=== PATIENT | female | born 1950 | race Caucasian/White ===

== ENCOUNTER → 2017-03-23 | Outpatient (CLI) | payer MEDICARE, BC ==
--- NOTE | 2017-03-26 07:28 | MM ---
Reason for exam: screening (asymptomatic). Last mammogram was performed 1 year and 3 months ago. History: Patient is postmenopausal. Physical Findings: A clinical breast exam by your physician is recommended on an annual basis and results should be correlated with mammographic findings. MG 3D Screening Mammo W/Cad Bilateral CC and MLO view(s) were taken. Prior study comparison: December 17, 2015, bilateral MG screening mammo w CAD. May 26, 2014, bilateral MG screening mammo w CAD. There are scattered fibroglandular densities. There is no discrete abnormality. No significant changes when compared with prior studies. ASSESSMENT: Negative, BI-RAD 1 RECOMMENDATION: Routine screening mammogram of both breasts in 1 year.
== END | disposition home or self-care (01) ==
LOC: RADMAMWWP 09:43
PROVIDERS: ATTEND Obstetrics & Gynecology
DX: Z12.31 Encounter for screening mammogram for malignant neoplasm of breast (principal)
CPT/HCPCS: 77063; G0202

== ENCOUNTER → 2017-04-19 | Outpatient (CLI) | payer MEDICARE, BC ==
--- NOTE | 2017-04-19 16:34 | BD ---
EXAMINATION TYPE: MG DEXA axial skeleton. DATE OF EXAM: 04/19/2017 COMPARISON: 06.10.2014 CLINICAL HISTORY: 67-year-old FEMALE: Z13.820 SCREENING FOR OSTEOPOROSIS Height: 61.5 Weight: 168 FRAX RISK QUESTIONS: Alcohol (3 or more units per day): NO, ONLY 2 DAILY Family History (Parent hip fracture): UNKNOWN Glucocorticoids (More than 3mos): NO (Ex: prednisone, prednisolone, methylprednisolone, dexamethasone, and hydrocortisone). History of Fracture in Adulthood: NO Secondary Osteoporosis: NO 1. Type 1 Diabetes: NO 2. Hyperthyroidism: NO 3. Menopause before 45: NO 4. Malnutrition: NO 5. Chronic liver disease: NO Rheumatoid Arthritis: NO Current Tobacco Use: NO RISK FACTORS HISTORY OF: Family History of Osteoporosis: UNKNOWN Active: SOMEWHAT Diet low in dairy products/other sources of calcium: NO Postmenopausal woman: AT 54 Lost more than 2 inches in height since high school: YES Hyperparathyroidism: NO Adrenal Insufficiency: NO MEDICATIONS: Additional Medications: MOBIC, NSAIDS, PRILOSEC, CALCIUM AND VIT D Additional History: ARTHRITIS EXAM MEASUREMENTS: Bone mineral densitometry was performed using the Catheter Connections System. Bone mineral density as measured about the Lumbar spine is: ----- L1-L4(G/cm2): 1.193 T Score Values are as follows: ----- L1: -0.5 ----- L2: -0.5 ----- L3: -0.4 ----- L4: 1.5 ----- L1-L4: 0.1 Bone mineral density has: Increased 3.3% since study of: 06.10.2014 Bone mineral density about the R hip (g/cm2): 0.919 Bone mineral density about the L hip (g/cm2): 0.924 T Score values are as follows: -----R Neck: -0.7 -----L Neck: -1.0 -----R Total: -0.7 -----L Total: -0.7 Bone mineral density has: Increased 1.7% since study of: 06.10.2014 FRAX%'S: THERE IS A 7.7% CHANCE FOR A MAJOR OSTEOPOROTIC FX AND A 0.6% FOR HIP FX.....PROBABILITY OF FX IN 10 YRS TIME IMPRESSION: Normal (Values between +1 and -1 indicate normal bone mass). Measurements border on osteopenia at th e left hip. Consider repeating this study in 5 years or sooner if there is some new clinical indication. NOTE: T-SCORE=SD OF THE YOUNG ADULT MEAN.
== END | disposition home or self-care (01) ==
LOC: RADBDWWP 14:51
PROVIDERS: ATTEND Obstetrics & Gynecology
DX: Z13.820 Encounter for screening for osteoporosis (principal)
CPT/HCPCS: 77080

== ENCOUNTER → 2017-05-25 | Outpatient (CLI) | payer MEDICARE, BC | END | disposition home or self-care (01) | LOC: LABPAT 13:17 | PROVIDERS: ATTEND Surgery Plastic and Reconstructive Surgery | DX: Z01.810 Encounter for preprocedural cardiovascular examination (principal) | CPT/HCPCS: 93005 ==

== ENCOUNTER 2017-05-31 12:17 | Inpatient (IN) | payer MEDICARE, BC ==
[2017-05-25 10:20] VITALS: BMI 28.3
[~2017-05-31 12:17] MED LIST: ACETAMINOPHEN IV (For NPO) 1,000 MG in EMPTY BAG 1 BAG IVPB ONE; CHLORHEXIDINE GLUCONATE 15 ML CUP MUCOUS MEM ONE; DEXAMETHASONE SOD PHOSPHATE 10 MG/ML 1 ML VIAL IV ONE; HEPARIN SODIUM,PORCINE 5,000 UNIT/ML 1 ML VIAL SQ ONE; HYDROmorphone 0.5 MG/0.5 ML SYRINGE IVP PRN; ONDANSETRON 4 MG/2 ML VIAL IVP ONE; PANTOPRAZOLE 40 MG/10 ML VIAL IV STA; SCOPOLAMINE 1.5MG/72HR PATCH TRANSDERM STA; ceFAZolin IN SWFI 2 GM/20 ML SYRINGE IVP ONE
--- NOTE | 2017-05-31 12:49 | P.GSHP ---
History of Present Illness H&P Date: 05/31/17 CHIEF COMPLAINT: Paraesophageal hiatal hernia with gastroesophageal reflux disease. HISTORY OF PRESENT ILLNESS: The patient is a 67-year-old female who presents with paraesophageal hiatal hernia. Additionally she has gastroesophageal reflux disease. She has completed an esophageal manometry including upper endoscopy workup. Now she presents for surgical intervention. PAST MEDICAL HISTORY: Please see list. PAST SURGICAL HISTORY: Please see list. MEDICATIONS: Please see list. ALLERGIES: Please see list. SOCIAL HISTORY: No illicit drug use FAMILY HISTORY: No reports of Crohn disease or ulcerative colitis. REVIEW OF ORGAN SYSTEMS: CONSTITUTIONAL: No reports of fevers or chills. GI: Denies any blood in stools or constipation. PHYSICAL EXAM: VITAL SIGNS: Stable GENERAL: Well-developed pleasant and in no acute distress. HEENT: No scleral icterus. Extraocular movements grossly intact. Moist buccal mucosa. NECK: Supple without lymphadenopathy. CHEST: Unlabored respirations. Equal bilateral excursions. CARDIOVASCULAR: Regular rate and rhythm. Distal 2+ pulses. ABDOMEN: Soft, nondistended. No peritoneal signs. MUSCULOSKELETAL: No clubbing, cyanosis, or edema. ASSESSMENT: 1. Diaphragmatic paraesophageal hiatal hernia 2. Gastroesophageal reflux disease. PLAN: 1. Recommend proceeding with a laparoscopic paraesophageal hiatal hernia with possible mesh. 2. Benefits and risks of surgical intervention was discussed including possibility of open technique. 3. Inpatient hospitalization recommended of 2 nights or less. 4. DVT prophylaxis. 5. Antibiotic prophylaxis. 6. She has also completed a very low caloric high-protein diet to address underlying hepatomegaly. 7. Robotic-assisted approach reviewed advised. Past Medical History Past Medical History: GERD/Reflux, Hearing Disorder / Deafness, Hyperlipidemia, Osteoarthritis (OA) Additional Past Medical History / Comment(s): HIATAL HERNIA. VERTIGO/RINGING IN EARS. TENDONITIS BILATERAL FEET/LEGS, WORSE ON LEFT SIDE. History of Any Multi-Drug Resistant Organisms: None Reported Past Surgical History: Cholecystectomy, Orthopedic Surgery, Tonsillectomy Additional Past Surgical History / Comment(s): PILONIDAL CYSTECTOMY. RT TRIGGER THUMB REPAIR. COLONOSCOPY/EGD Past Anesthesia/Blood Transfusion Reactions: Motion Sickness Past Psychological History: No Psychological Hx Reported Smoking Status: Former smoker Past Alcohol Use History: Occasional Additional Past Alcohol Use History / Comment(s): QUIT SMOKING 1973. Past Drug Use History: None Reported - Past Family History Father Family Medical History: Cancer Additional Family Medical History / Comment(s): SKIN Medications and Allergies Home Medications Medication Instructions Recorded Confirmed Type Meclizine [Antivert] 25 mg PO TID 03/13/17 05/25/17 History Allergies Allergy/AdvReac Type Severity Reaction Status Date / Time celecoxib [From Celebrex] Allergy See Comment Verified 05/31/17 12:35 Penicillins Allergy Unknown Verified 05/31/17 12:35 Childhood Sulfa (Sulfonamide Allergy Rash/Hives Verified 05/31/17 12:35 Antibiotics) tramadol Allergy See Comment Verified 05/31/17 12:35 nutmeg Allergy Nausea & Uncoded 05/31/17 12:35 Vomiting & Diarrhea
[2017-05-31] MEDS: LACTATED RINGERS 1,000 ML IV SCH ×2 (13:02→13:06)
[2017-05-31] MEDS ORDERED: LIDOCAINE 1% 20 ML VIAL (10MG/ML) FOR IV START INTRADERMA ONE ×2 (13:03→13:06)
[2017-05-31] MEDS: MIDAZOLAM 2 MG/2 ML VIAL IV PRN ×2 (13:26→13:30)
[2017-05-31] MEDS ORDERED: GLYCOPYRROLATE 0.2 MG/ML 2 ML VIAL ONE (13:45)
[2017-05-31] MEDS ORDERED: MIDAZOLAM 2 MG/2 ML VIAL ONE (13:45)
[2017-05-31] MEDS ORDERED: ROCURONIUM BROMIDE 10 MG/ML 10 ML VIAL IV ONE (13:45)
[2017-05-31] MEDS ORDERED: SUCCINYLCHOLINE CHLORIDE VIAL 200 MG/10 ML VIAL IV ONE (13:45)
[2017-05-31] MEDS ORDERED: HYDROmorphone (PF) 1 MG/ML ONE (13:45)
[2017-05-31] MEDS ORDERED: LIDOCAINE 1% INJ 10MG/ML (20 ML MDV) ONE (13:45)
[2017-05-31] MEDS ORDERED: fentaNYL (PF) 50 MCG/ML 2 ML AMP ONE (13:45)
[2017-05-31] MEDS ORDERED: NEOSTIGMINE 1 MG/ML 10 ML VIAL ONE (13:45)
[2017-05-31] MEDS ORDERED: PROPOFOL 10 MG/ML 20 ML VIAL IV ONE (13:45)
[2017-05-31] MEDS ORDERED: ePHEDrine SULFATE/0.9% NACL/PF 50 MG/5 ML SYRINGE IV ONE (13:45)
[2017-05-31] MEDS ORDERED: BUPIVACAINE-EPI 0.5%-1:200,000 10 ML VIAL SQ ONE (14:07)
[2017-05-31] MEDS ORDERED: LACTATED RINGERS 1,000 ML IV ONE (17:07)
[2017-05-31] MEDS ORDERED: diphenhydrAMINE 50 MG/ML 1 ML VIAL IVP PRN (17:37)
[2017-05-31] MEDS ORDERED: ONDANSETRON 4 MG/2 ML VIAL IVP PRN (17:37)
[2017-05-31] MEDS ORDERED: HYDROcodone/APAP 15 ML SOLUTION PO PRN (17:37)
[2017-05-31] MEDS ORDERED: NALOXONE 0.4 MG/ML 1 ML VIAL IV PRN (17:37)
--- NOTE | 2017-05-31 17:59 | P.OP ---
Date of Procedure: 05/31/17 Description of Procedure: DESCRIPTION OF PROCEDURE(S): SURGEON: ERIKA AYALA MD DIRECTOR ENVIRONMENTAL: 1. Jesse Blanton 2. Summer Roth PREOPERATIVE DIAGNOSES: 1. Gastroesophageal reflux disease. 2. Paraesophageal hiatal hernia, midline. 3. Hyperlipidemia. 4. Vertigo. 5. Previous history of post-op nausea or vomiting. POSTOPERATIVE DIAGNOSES: 1. Gastroesophageal reflux disease. 2. Paraesophageal hiatal hernia, midline. 3. Hyperlipidemia. 4. Vertigo. 5. Previous history of post-op nausea or vomiting. 6. Right upper quadrant omental to abdominal peritoneal adhesions from previous open cholecystectomy. OPERATION: 1. Robotic-assisted da Samantha Xi laparoscopic reduction and repair of incarcerated paraesophageal hiatal hernia, 5 x 6 cm, with Williams Biopatch A 8 x 8 cm. 2. Robotic-assisted da Samantha Xi laparoscopic Aram fundoplasty. 3. Intraoperative esophagogastroduodenoscopy ANESTHESIA: General with local anesthetic. ESTIMATED BLOOD LOSS: 5 mL SPECIMENS REMOVED: None. COMPLICATIONS: None. FINDINGS: 1. Thoracic length 21 cm. 2. Port placed 15 cm distal. 3. Incarcerated upper pole of the stomach within the mediastinum with moderate dissection performed with resection of mediastinal hernia sac. 4. 6 cm paraesophageal incarcerated diaphragmatic hiatal hernia with moderate dissection into the mediastinum. 5. Williams Biopatch A onlay mesh placed. 6. Closure of the hiatus consistent with 52-S[place] bougie. INDICATIONS: The patient is a 67-year-old female who presents with regurgitation, gastroesophageal reflux disease poorly controlled despite medications, and a symptomatic diaphragmatic hiatal hernia. Preoperative workup including upper endoscopy demonstrated a Hill grade 4 lower esophageal valve. She completed an esophageal manometry. Given the severity of her symptoms, particularly of her symptomatic diaphragmatic hiatal hernia, she had elected for surgical intervention. Benefits and risks including bleeding, infection, recurrence, dysphagia, injury to the lung, need for further surgery was described at length. Informed consent was obtained. DESCRIPTION: The patient was brought into the operating room and placed in supine position. Preoperatively she had received Lovenox subcutaneously for DVT prophylaxis. After general induction, the abdomen was prepped and draped in standard sterile fashion. The patient had previously voided prior to coming to the operating room. Ioban draping was placed along the abdomen. A timeout protocol was confirmed with the surgical team, for which the patient's name, procedure to be performed including DVT prophylaxis with bilateral SCDs, and preoperative antibiotics were also confirmed. A robotic da Samantha Xi system was prepped and primed. At 15 cm from the xiphoid to just below the umbilicus, proposed port sites were marked with indelible marker along the left axillary line, left mid-clavicular line with each ports were marked 10 cm from each other. A 5 mm 0 degrees laparoscopic trocar entry was performed along the left upper quadrant. The abdomen was insufflated to 15 mmHg pressure she tolerated well. Diagnostic laparoscopy demonstrated no injury to bowel, viscera, or mesentery. Severe adhesions of the omentum to the right upper quadrant abdominal wall was identified from previous open cholecystectomy. The liver surface was unremarkable. No injury had occurred to the small bowel or viscera. Along the hiatus, a defect was found anteriorly. Next, one 8 mm robotic port was placed along the right upper abdomen. An 8-mm port was were placed along the left lateral abdominal wall. The camera 8-mm port was maintained along the epigastrium via the hernia defect. Another 12 mm port was placed along the left upper abdominal wall after exchanging the 5 mm port. Please note that the ports were placed at least 20 cm away from the target anatomy. Care was taken to check that each robotic arm were safely away from collision with the bed or the patient. At the epigastrium, a median sized Harry liver retractor was placed under direct visualization with the [employer] placed over the right shoulder of the patient. The additional third robotic arm was placed along the left aspect of the patient. The patient was repositioned in reverse Trendelenburg position at 14-degrees after lowering the bed. The robot was docked above the left side of the patient. Using a grasper for arm 3, a grasper for arm 1, including vessel sealer for arm 2, the robotic system was docked and primed as described. Instruments were interchanged by the pier master assistant. I had sat at the console. The gastrohepatic ligament was cleaved using a vessel sealer. Next, the phrenoesophageal ligament was mobilized and the distal esophagus was mobilized circumferentially with care of to the bilateral vagi nerves. The left and right crura was identified. A moderate sized midline large hiatal hernia and sac was found incarcerated into the mediastinum. Significant mobilization of the distal to mid esophagus into the mediastinum was performed. Circumferentially, the hernia sac was excised and brought into the peritoneal cavity. Care was taken to avoid any gastrotomy to the incarcerated upper pole of the stomach. Extended dissection occurred for at least another 1 hour as the superior iposterior axis of the stomach was densely adherent and causing moderate rotation of the stomach. The measured defect was consistent with 6 cm axial length and 5 cm in width. After extensive dissection, the distal esophagus at least 2 cm was brought into the abdominal cavity. Once the hiatus and crura was dissected, 2-0 VLOC suture was placed initially with a [id number] suture to reapproximate the diaphragmatic hiatus posteriorly. To buttress the repair, a Williams Biopatch A was prepared along the back table and cut in a tomlin-hole fashion as to reinforce the repair as an underlay. The mesh was placed along the crural repair and tagged using horizontal mattress sutures using 2-0 VLOC. Next a Aram fundoplasty was performed such that the greater curvature of stomach was swung along the retrogastric space. A shoeshine technique demonstrated no tension or torsion along the proposed Aram fundoplasty. Sutures of 2-0 Ethibond were used to place each stitch. Next, the first stitch from a left gastric to esophageal to right gastric bites was tied. Two additional sutures approximately a centimeter inferiorly were placed with gastric to gastric bites. The final fundoplasty was found to lay at the 11 o'clock position without any gastrotomy. I went to the head of the bed to perform intraoperative esophagogastroduodenoscopy. A 52-S[place] Arabian bougie was carefully placed along the posterior oropharynx through the hiatus as a visual aid for hiatus closure and then removed. I went to the head of the bed to perform intraoperative esophagogastroduodenoscopy. An Olympus gastroscope was passed through posterior oropharynx, where the GE junction was found distal to the diaphragmatic hiatus. The intra-abdominal esophageal length obtained during the case was over 2 cm. The stomach was entered. Retroflexion of the scope confirmed a Hill grade 1 lower esophageal valve. The stomach had been desufflated. No evidence of leaks were found either of the mucosal defects of the esophagus or stomach. The hiatal closure was consistent with a 52 [place] bougie as a bougie was passed. This concluded the endoscopic portion of the case. The robot was undocked from the patient. I re-scrubbed into the case. All instruments and pneumoperitoneum were evacuated from the abdominal cavity. Incisions were reapproximated using 4-0 Monocryl in an interrupted subcuticular fashion. The 12-mm port site was oversewn using 0 Vicryl in a Terrance Lange. Dermabond was applied to the skin. Local anesthetic was infiltrated in all wounds for postop analgesia. Multiple intra-abdominal films were obtained. At the end of the procedure, needle, sponge, and instrument count was verified correct by the sleep technician. The patient had tolerated the procedure well and was taken to the postanesthesia unit in stable condition. Intraoperative films were reviewed with the patient's family who was pleased with the level of care.
[2017-05-31] MEDS ORDERED: ACETAMINOPHEN IV (For NPO) 1,000 MG in EMPTY BAG 1 BAG IVPB ONE (19:00)
[2017-05-31] MEDS: 0.9% NACL WITH KCL 20 MEQ/L 1,000 ML IV SCH (19:56)
[2017-05-31] MEDS: SIMETHICONE 40 MG/0.6 ML DROPS 2,000 MG/30 ML BOTTLE PO SCH (19:56)
[2017-05-31] MEDS: HYOSCYAMINE ORAL DROPS 1.875 MG/15 ML BOTTLE PO SCH (19:56)
[2017-05-31] MEDS: MECLIZINE 25 MG TAB PO SCH (22:21)
[2017-05-31] MEDS: HYDROmorphone 0.5 MG/0.5 ML SYRINGE IVP PRN (22:25)
[2017-06-01] MEDS: SIMETHICONE 40 MG/0.6 ML DROPS 2,000 MG/30 ML BOTTLE PO SCH ×4 (00:38→18:45)
[2017-06-01] MEDS: HYOSCYAMINE ORAL DROPS 1.875 MG/15 ML BOTTLE PO SCH ×4 (00:39→18:44)
[2017-06-01] MEDS: HYDROmorphone 0.5 MG/0.5 ML SYRINGE IVP PRN ×6 (02:28→23:56)
[2017-06-01] MEDS: 0.9% NACL WITH KCL 20 MEQ/L 1,000 ML IV SCH ×2 (02:32→13:11)
[2017-06-01] MEDS ORDERED: ceFAZolin IN SWFI 2 GM/20 ML SYRINGE IVP STA (06:09)
[2017-06-01 06:32] LABS: Basophils % (A) 0 %; CH 30.4; CHCM 32.2; Eosinophils % (A) 0 %; HCT 35.5 % (34.0-46.0); HDW 2.33; HGB 11.4 gm/dL (11.4-16.0); Luc # (Auto) 0.14; Luc % (Auto) 1; Lymphocytes # (A) 1.5 k/uL (1.0-4.8); Lymphocytes % (A) 16 %; MCH 30.4 pg (25.0-35.0); MCV 94.8 fL (80.0-100.0); Mean Platelet Volume 7.2; Monocytes # (A) 0.6 k/uL (0-1.0); Monocytes % (A) 6 %; Neutrophils # (A) 7.2 k/uL (1.3-7.7); Neutrophils % (A) 76 %; RBC 3.75 m/uL (3.80-5.40); RDW 12.2 % (11.5-15.5); WBC 9.5 k/uL (3.8-10.6); WBC (Perox) 9.08
[2017-06-01 07:08] LABS: Anion Gap 7 mmol/L; Blood Urea Nitrogen 10 mg/dL (7-17); Calcium 9.2 mg/dL (8.4-10.2); Carbon Dioxide 23 mmol/L (22-30); Chloride 108 mmol/L (98-107); Magnesium 1.9 mg/dL (1.6-2.3); Non-African American GFR(MDRD) >60 (>60 ml/min/1.73 sqM); Phosphorous 3.9 mg/dL (2.5-4.5); Potassium 5.2 mmol/L (3.5-5.1); Sodium 138 mmol/L (137-145)
--- NOTE | 2017-06-01 07:42 | P.PN ---
Progress Note - Text Progress Note Date: 06/01/17 Patient seen and evaluated. No nausea. Patient can be discharged home following esophagram tomorrow.
[2017-06-01] MEDS ORDERED: 0.9% NACL WITH KCL 20 MEQ/L 1,000 ML IV SCH (08:00)
[2017-06-01] MEDS: PANTOPRAZOLE 40 MG/10 ML VIAL IV SCH (08:35)
[2017-06-01] MEDS: ENOXAPARIN 40 MG/0.4 ML SYRINGE SQ SCH (08:44)
[2017-06-01] MEDS: MECLIZINE 25 MG TAB PO SCH ×3 (10:00→21:40)
--- NOTE | 2017-06-01 11:35 | FL ---
EXAMINATION TYPE: FL UGI DATE OF EXAM: 06/01/2017 COMPARISON: NONE HISTORY: Status post Aram fundoplication TECHNIQUE: A single contrast UGI study is performed. 1.49 seconds of fluoroscopy time was utilized w ith 18 images saved in 2 ounces of EZ Paque contrast. FINDINGS: After administration of approximately 1 ounce of contrast there is only minimal contrast expelled thr ough the gastroesophageal junction into the proximal stomach. Severe obstruction wasn't appreciated w ith lack of propulsion through the gastroesophageal junction of the remaining contrast. Air-fluid lev el is noted within the mildly dilated distal esophagus to the level of the mid thoracic esophagus. De spite 10 minute delay with the patient in the upright gravity dependent position and reimaging no add itional contrast was seen extending through the gastroesophageal junction. Retained contrast is again noted to the level of the midthoracic esophagus. The patient was then given 1 ounce of water to stim ulate antegrade flow with slight success. Minimal amount of contrast was again seen extending through the gastroesophageal junction with persistent retained moderate amount of contrast. The patient was sent to her room with aspiration precautions. Aspiration precautions were also discussed with the pat ient. IMPRESSION: Severe obstruction at the gastroesophageal junction despite 10 minute delayed images afte r the patient was placed in an upright gravity dependent position. Only minimal contrast extends thro ugh the gastroesophageal junction and there is mild distal esophageal dilatation with air-fluid level and residual contrast to the level of the mid thoracic esophagus. A Oliver message has been communicated to Dee Dee Bartlett MD via the [facility] sult system on 06/01/2017 11:33 AM, Message ID [id number].
--- NOTE | 2017-06-01 12:27 | P.PN ---
<AzarDianaGaby M - Last Filed: 06/01/17 12:12> Subjective Progress Note Date: 06/01/17 67-year-old female seen and examined at bedside. Patient currently is sitting up in a chair. Patient reports having no difficulty swallowing oral secretions. Patient reports on a scale 1-10 rating pain at a 3 discomfort left lower quadrant. Ice packs to surgical site Surgical incision sites dry no redness abdomen not distended slight surgical tenderness noted. Did note the post op upper GI shows severe obstruction at the gastroesophageal junction mild distal esophageal dilatation with air-fluid level no air leak. Postop on May 31 Robotic-assisted da Samantha Xi laparoscopic reduction and repair of incarcerated paraesophageal hiatal hernia, 5 x 6 cm, with Butler Biopatch A 8 x 8 cm. . Robotic-assisted da Samantha Xi laparoscopic Aram fundoplasty. . Intraoperative esophagogastroduodenoscopy Objective - Vital Signs Vital signs: Vital Signs Temp 97.8 F 06/01/17 11:00 Pulse 58 L 06/01/17 11:00 Resp 20 06/01/17 11:00 BP 113/67 06/01/17 11:00 Pulse Ox 97 06/01/17 11:00 Intake & Output 05/31/17 06/01/17 06/01/17 18:59 06:59 18:59 Intake Total 2100 360 710 Output Total 155 100 675 Balance 1945 260 35 Weight 72.575 kg Intake: IV 2100 Intake, IV Titration 450 Amount 0.9% NaCl with KCl 20 Meq 300 /l 1,000 ml @ 100 mls/hr IV .Q10H GISELLE Rx#: [id number] 0.9% NaCl with KCl 20 Meq 150 /l 1,000 ml @ 150 mls/hr IV .Q6H40M GISELLE Rx#: [id number] Oral 360 260 Output: Urine 150 100 675 Estimated Blood Loss 5 - Constitutional Constitutional Comment(s): Physical exam Pleasant 67-year-old female sitting upright in a chair appears in no acute distress denies any nausea vomiting. States no difficulty in swallowing oral secretions Lungs adequate air movement bilaterally on room air Heart S1-S2 audible regular Abdomen soft surgical sites dry no redness not distended bowel tones present surgical tenderness appropriate reports having discomfort left lower quadrant urinating no difficulty no stool Extremities no edema noted - Labs CBC & Chem 7: 06/01/17 06:21 11/17/17 06:21 Labs: Abnormal Lab Results - Last 24 Hours (Table) 06/01/17 06/01/17 Range/Units 06:21 06:21 RBC 3.75 L (3.80-5.40) m/uL Potassium 5.2 H (3.5-5.1) mmol/L Chloride 108 H (98-107) mmol/L Assessment and Plan Plan: Impression History of esophageal reflux disease Periesophageal hiatal hernia midline Hyperlipidemia Robotic-assisted da Samantha Xi laparoscopic reduction and repair of incarcerated paraesophageal hiatal hernia, 5 x 6 cm, with Butler Biopatch A 8 x 8 cm. . Robotic-assisted da Samantha Xi laparoscopic Aram fundoplasty. . Intraoperative esophagogastroduodenoscopy Postop upper GI shows severe obstruction at the gastroesophageal junction Mild hyperkalemia Plan We'll give a 2 L fluid bolus rehydrated then fluid to run at 100 and hour Have patient sit upright Continue postop surgical care Aspiration precautions Pain control Further recommendations pending The above impression and plan of care have been discussed and directed by signing physician. Gaby Askew nurse practitioner acting as scribe for signing physician. <Dee Dee Bartlett - Last Filed: 06/01/17 20:14> Objective - Vital Signs Vital signs: Vital Signs Temp 97.4 F L 06/01/17 16:03 Pulse 60 06/01/17 16:03 Resp 16 06/01/17 16:03 BP 110/70 06/01/17 16:03 Pulse Ox 98 06/01/17 16:03 Intake & Output 06/01/17 06/01/17 06/02/17 06:59 18:59 06:59 Intake Total 360 890 30 Output Total 100 1075 Balance 260 -185 30 Weight 72.575 kg Intake: Intake, IV Titration 450 Amount 0.9% NaCl with KCl 20 Meq 300 /l 1,000 ml @ 100 mls/hr IV .Q10H GISELLE Rx#: [id number] 0.9% NaCl with KCl 20 Meq 150 /l 1,000 ml @ 150 mls/hr IV .Q6H40M GISELLE Rx#: [id number] Oral 360 440 30 Output: Urine 100 1075 - Labs CBC & Chem 7: 06/01/17 06:21 06/01/17 06:21 Labs: Abnormal Lab Results - Last 24 Hours (Table) 06/01/17 06/01/17 Range/Units 06:21 06:21 RBC 3.75 L (3.80-5.40) m/uL Potassium 5.2 H (3.5-5.1) mmol/L Chloride 108 H (98-107) mmol/L
[2017-06-01] MEDS ORDERED: ACETAMINOPHEN IV (For NPO) 1,000 MG in EMPTY BAG 1 BAG IVPB ONE (12:30)
[2017-06-01] MEDS: SODIUM CHLORIDE 0.9% 1,000 ML IV SCH ×4 (13:22→21:22)
[2017-06-01] MEDS ORDERED: DEXAMETHASONE SOD PHOSPHATE 10 MG/ML 1 ML VIAL IV STA (20:24)
[2017-06-01] MEDS: ACETAMINOPHEN IV (For NPO) 1,000 MG in EMPTY BAG 1 BAG IVPB PRN (23:30)
[2017-06-02] MEDS: SIMETHICONE 40 MG/0.6 ML DROPS 2,000 MG/30 ML BOTTLE PO SCH ×3 (01:34→12:51)
[2017-06-02] MEDS: HYOSCYAMINE ORAL DROPS 1.875 MG/15 ML BOTTLE PO SCH ×3 (01:35→12:48)
[2017-06-02] MEDS: DEXAMETHASONE SOD PHOSPHATE 10 MG/ML 1 ML VIAL IV SCH ×2 (02:41→10:30)
[2017-06-02] MEDS: HYDROmorphone 0.5 MG/0.5 ML SYRINGE IVP PRN ×2 (02:41→05:30)
[2017-06-02] MEDS: ACETAMINOPHEN IV (For NPO) 1,000 MG in EMPTY BAG 1 BAG IVPB PRN (05:51)
--- NOTE | 2017-06-02 07:33 | XR ---
EXAMINATION TYPE: XR chest 1V DATE OF EXAM: 06/02/2017 HISTORY: dyspnea. REFERENCE: NONE. FINDINGS: Heart is mildly enlarged. The lungs are clear. Pleural spaces are clear. There is subcutane ous emphysema overlying the supraclavicular areas bilaterally. There is also subcutaneous emphysema a long the left lateral chest wall. There is a 20% by volume, left apical pneumothorax. There is atelec tatic change at the left lung base. There is a small left effusion. IMPRESSION: 1. 20% LEFT APICAL PNEUMOTHORAX. 2. SUBCUTANEOUS EMPHYSEMA. 3. LEFT BASILAR ATELECTASIS. 4. CARDIOMEGALY.
[2017-06-02 07:46] LABS: Anion Gap 10 mmol/L; Blood Urea Nitrogen 7 mg/dL (7-17); Calcium 9.2 mg/dL (8.4-10.2); Carbon Dioxide 20 mmol/L (22-30); Chloride 105 mmol/L (98-107); Glucose 99 mg/dL (74-99); Non-African American GFR(MDRD) >60 (>60 ml/min/1.73 sqM); Potassium 4.7 mmol/L (3.5-5.1); Sodium 135 mmol/L (137-145)
[2017-06-02 08:33] VITALS: PULSE 56; TEMP 97.1
[2017-06-02] MEDS ORDERED: ceFAZolin IN SWFI 2 GM/20 ML SYRINGE IVP STA (08:52)
[2017-06-02 08:54] VITALS: RESP 16
[2017-06-02] MEDS: ENOXAPARIN 40 MG/0.4 ML SYRINGE SQ SCH (09:43)
[2017-06-02] MEDS: MECLIZINE 25 MG TAB PO SCH (09:43)
[2017-06-02] MEDS: PANTOPRAZOLE 40 MG/10 ML VIAL IV SCH (09:43)
[2017-06-02 10:08] VITALS: BP 115/73
--- NOTE | 2017-06-02 12:24 | P.PN ---
Subjective Progress Note Date: 06/02/17 Principal diagnosis: Hiatal hernia with esophageal reflux disease The patient is a 67-year-old female who is status post robotic-assisted laparoscopic hiatal hernia repair with mesh placement. Postprocedure she was doing fair however she had an esophagram which demonstrated high-grade esophageal obstruction. After conservative measures including using Decadron, clinically she was able to tolerate liquids. Her nausea had completely resolved. A repeat chest x-ray was obtained that confirmed clearance of her barium swallow. She denies any dyspnea on exertion. She denied any chest pain. She is using her incentive spirometer and obtaining expected valleys over 1500 mL. Objective - Vital Signs Vital signs: Vital Signs Temp 97.1 F L 06/02/17 08:29 Pulse 56 L 06/02/17 10:07 Resp 16 06/02/17 10:07 BP 115/73 06/02/17 10:07 Pulse Ox 98 06/02/17 10:07 Intake & Output 06/01/17 06/02/17 06/02/17 18:59 06:59 18:59 Intake Total 890 790 30 Output Total 1075 2250 1500 Balance -185 -1460 -1470 Weight 72.575 kg Intake: IV 660 Sodium Chloride 0.9% 1, 660 000 ml @ 100 mls/hr IV . Q10H GISELLE Rx#:[id number] Intake, IV Titration 450 100 Amount 0.9% NaCl with KCl 20 Meq 300 /l 1,000 ml @ 100 mls/hr IV .Q10H GISELLE Rx#: [id number] 0.9% NaCl with KCl 20 Meq 150 /l 1,000 ml @ 150 mls/hr IV .Q6H40M GISELLE Rx#: [id number] ACETAMINOPHEN IV (For NPO 100 ) 1,000 mg In Empty Bag 1 bag @ 400 mls/hr IVPB Q6HR PRN Rx#:[id number] Oral 440 30 30 Output: Urine 1075 2250 1500 - Exam GENERAL: Well developed and in no acute distress. Pleasant. HEENT: No sclera icterus. Extraocular movements grossly intact. Moist buccal mucosa. Head is atraumatic, normocephalic. Hears conversational speech. No nasal drainage. NECK: Supple without lymphadenopathy. No JV distention. CHEST: Non-labored respirations and equal bilateral excursions. CARDIOVASCULAR: Regular rate and rhythm. Palpable 2+ radial pulses. ABDOMEN: Soft. Nondistended. Laparoscopic sites clean dry and intact. Improved expected discomfort along the left upper quadrant incision as a full muscular closure. MUSCULOSKELETAL: No clubbing, cyanosis or edema. NEUROLOGIC: No focal or lateralizing signs. PSYCH: Appropriate affect. Alert and oriented to person, place and time. SKIN: Good skin turgor. Well perfused. - Labs CBC & Chem 7: 06/01/17 06:21 06/02/17 06:29 Labs: Abnormal Lab Results - Last 24 Hours (Table) 06/02/17 Range/Units 06:29 Sodium 135 L (137-145) mmol/L Carbon Dioxide 20 L (22-30) mmol/L - Imaging and Cardiology Chest x-ray: image reviewed (X-ray reviewed by me. ) Assessment and Plan (1) Paraesophageal hernia with obstruction but no gangrene Current Visit: Yes Status: Acute Code(s): K44.0 - DIAPHRAGMATIC HERNIA WITH OBSTRUCTION, WITHOUT GANGRENE SNOMED Code(s): 98804138 (2) Regurgitation Current Visit: Yes Status: Acute Code(s): R11.10 - VOMITING, UNSPECIFIED SNOMED Code(s): 74989885 (3) Dysphagia Current Visit: Yes Status: Acute Code(s): R13.10 - DYSPHAGIA, UNSPECIFIED SNOMED Code(s): 24086984 (4) Nausea Current Visit: Yes Status: Acute Code(s): R11.0 - NAUSEA SNOMED Code(s): 656972730 Plan: 1. Clinically, she is tolerating her Aram diet. Post Aram instructions were described in detail. 2. Continue with incentive spirometer for home. This is to prevent atelectasis. 3. Follow-up in the office in 3 days. 4. Results of her chest x-ray was reviewed. I have recommended continue incentive spirometer at home as patient at the time of evaluation is asymptomatic. 5. Discharge home.
--- NOTE | 2017-06-02 12:27 | P.DS ---
Providers Date of admission: 05/31/17 12:17 Expected date of discharge: 06/02/17 Attending physician: Dee Dee Bartlett Primary care physician: Narciso Jones - Discharge Diagnosis(es) (1) Paraesophageal hernia with obstruction but no gangrene Current Visit: Yes Status: Acute (2) Regurgitation Current Visit: Yes Status: Acute (3) Dysphagia Current Visit: Yes Status: Acute (4) Nausea Current Visit: Yes Status: Acute Hospital Course: The patient is a 67-year-old female who had a symptomatic large paraesophageal hiatal hernia with incarceration. She had robotic-assisted approach. Post procedure, she had developed edema along her surgery. As this is an expected doing and inherent responded to the procedure, she did develop mild dysphagia which had immediately resolved after giving her Decadron to decrease edema from her surgery. Prior to discharge, she felt better. She is tolerating liquids. She denied any dyspnea, shortness of breath, chest pain, and was ambulating without dyspnea on exertion. Pertinent Studies: Esophagram Chest x-ray Procedures: POSTOPERATIVE DIAGNOSES: 1. Gastroesophageal reflux disease. 2. Paraesophageal hiatal hernia, midline. 3. Hyperlipidemia. 4. Vertigo. 5. Previous history of post-op nausea or vomiting. 6. Right upper quadrant omental to abdominal peritoneal adhesions from previous open cholecystectomy. OPERATION: 1. Robotic-assisted da Samantha Xi laparoscopic reduction and repair of incarcerated paraesophageal hiatal hernia, 5 x 6 cm, with [place] Biopatch A 8 x 8 cm. 2. Robotic-assisted da Samantha Xi laparoscopic Aram fundoplasty. 3. Intraoperative esophagogastroduodenoscopy ANESTHESIA: General with local anesthetic. ESTIMATED BLOOD LOSS: 5 mL SPECIMENS REMOVED: None. COMPLICATIONS: None. FINDINGS: 1. Thoracic length 21 cm. 2. Port placed 15 cm distal. 3. Incarcerated upper pole of the stomach within the mediastinum with moderate dissection performed with resection of mediastinal hernia sac. 4. 6 cm paraesophageal incarcerated diaphragmatic hiatal hernia with moderate dissection into the mediastinum. 5. [place] Biopatch A onlay mesh placed. 6. Closure of the hiatus consistent with 52-Urdu bougie. Patient Condition at Discharge: Stable Plan - Discharge Summary Discharge Rx Participant: Yes New Discharge Prescriptions: New Acetaminophen 40 mg/1.25 ml [Tylenol 40 mg/1.25 ml Oral Syringe] 500 mg PO Q6HR PRN #480 oral.syrg PRN Reason: Pain Ondansetron Odt [Zofran ODT] 4 mg PO Q8HR PRN #8 tab PRN Reason: Nausea Hyoscyamine Oral Drops [Levsin Drops] 0.125 mg PO Q6HR ml Simethicone 40 mg/0.6 ml Drops [Mylicon Drops] 40 mg PO Q6HR ml Continue Meclizine [Antivert] 25 mg PO TID Discharge Medication List Meclizine [Antivert] 25 mg PO TID 03/13/17 [History] Acetaminophen 40 mg/1.25 ml [Tylenol 40 mg/1.25 ml Oral Syringe] 500 mg PO Q6HR PRN #480 oral.syrg 06/01/17 [Rx] Hyoscyamine Oral Drops [Levsin Drops] 0.125 mg PO Q6HR ml 06/01/17 [Rx] Ondansetron Odt [Zofran ODT] 4 mg PO Q8HR PRN #8 tab 06/01/17 [Rx] Simethicone 40 mg/0.6 ml Drops [Mylicon Drops] 40 mg PO Q6HR ml 06/01/17 [Rx] Follow up Appointment(s)/Referral(s): Dee Dee Bartlett MD [STAFF PHYSICIAN] - 06/05/17 4:30 pm (You have an appointment with Dr Bartlett on Monday, June 05, 2017 at 4:30 pm) Patient Instructions/Handouts: Adult Laparoscopic Aram Fundoplication (DC) Activity/Diet/Wound Care/Special Instructions: No lifting over 4 pounds in 4 weeks. Full liquid diet until seen in the office. No solid foods. Avoid straws. Avoid carbonated beverages. May shower. No baths soaks. Discharge Disposition: HOME SELF-CARE
== END 2017-06-02 12:45 | disposition home or self-care (01) | DRG 328 ==
LOC: 2ORWHC 12:17 → 6PED 17:32
PROVIDERS: ADMIT Surgery Plastic and Reconstructive Surgery; ATTEND Surgery Plastic and Reconstructive Surgery
PROC: 0DJ08ZZ Inspection of Upper Intestinal Tract, Via Natural or Artificial Opening Endoscopic (ICD-10-PCS; principal; 2017-05-31 13:30)
PROC: 0DNU0ZZ Release Omentum, Open Approach (ICD-10-PCS; principal; 2017-05-31 13:30)
PROC: 0BUT0JZ Supplement Diaphragm with Synthetic Substitute, Open Approach (ICD-10-PCS; principal; 2017-05-31 13:30)
PROC: 0DV40ZZ Restriction of Esophagogastric Junction, Open Approach (ICD-10-PCS; principal; 2017-05-31 13:30)
PROC: 8E0W0CZ Robotic Assisted Procedure of Trunk Region, Open Approach (ICD-10-PCS; principal; 2017-05-31 13:30)
DX: K44.0 Diaphragmatic hernia with obstruction, without gangrene (principal); E87.5 Hyperkalemia; E78.5 Hyperlipidemia, unspecified; H91.90 Unspecified hearing loss, unspecified ear; K21.9 Gastro-esophageal reflux disease without esophagitis; K22.2 Esophageal obstruction; K66.0 Peritoneal adhesions (postprocedural) (postinfection); Z87.891 Personal history of nicotine dependence; Z79.899 Other long term (current) drug therapy; R42 Dizziness and giddiness; Z88.2 Allergy status to sulfonamides; Z88.0 Allergy status to penicillin; Z88.6 Allergy status to analgesic agent; Z91.018 Allergy to other foods
CPT/HCPCS: 71010; 74240; 80048; 80051; 82310; 82565; 83735; 84100; 84520; 85025

== ENCOUNTER → 2018-03-26 | Outpatient (CLI) | payer MEDICARE, BC ==
--- NOTE | 2018-03-27 12:02 | MM ---
Reason for exam: screening (asymptomatic). Last mammogram was performed 1 year ago. History: Patient is postmenopausal. Physical Findings: A clinical breast exam by your physician is recommended on an annual basis and results should be correlated with mammographic findings. MG 3D Screening Mammo W/Cad Bilateral CC and MLO view(s) were taken. Prior study comparison: March 23, 2017, bilateral MG 3d screening mammo w/cad. December 17, 2015, bilateral MG screening mammo w CAD. There are scattered fibroglandular densities. There is no discrete abnormality. No significant changes when compared with prior studies. ASSESSMENT: Negative, BI-RAD 1 RECOMMENDATION: Routine screening mammogram of both breasts in 1 year.
== END | disposition home or self-care (01) ==
LOC: RADMAMWWP 10:46
PROVIDERS: ATTEND Obstetrics & Gynecology
DX: Z12.31 Encounter for screening mammogram for malignant neoplasm of breast (principal)
CPT/HCPCS: 77063; 77067

== ENCOUNTER → 2019-03-31 | Outpatient (CLI) | payer MEDICARE, BC ==
--- NOTE | 2019-04-02 09:02 | MM ---
Reason for exam: screening (asymptomatic). Last mammogram was performed 1 year ago. History: Patient is postmenopausal. Physical Findings: A clinical breast exam by your physician is recommended on an annual basis and results should be correlated with mammographic findings. MG 3D Screening Mammo W/Cad Bilateral CC and MLO view(s) were taken. Prior study comparison: March 26, 2018, bilateral MG 3d screening mammo w/cad. March 23, 2017, bilateral MG 3d screening mammo w/cad. There are scattered fibroglandular densities. No significant changes when compared with prior studies. ASSESSMENT: Negative, BI-RAD 1 RECOMMENDATION: Routine screening mammogram of both breasts in 1 year.
== END | disposition home or self-care (01) ==
LOC: RADMAMWWP 11:15
PROVIDERS: ATTEND Obstetrics & Gynecology
DX: Z12.31 Encounter for screening mammogram for malignant neoplasm of breast (principal)
CPT/HCPCS: 77063; 77067

== ENCOUNTER 2020-03-10 06:59 | Day surgery (SDC) | payer MEDICARE, BC ==
[2020-03-05 11:13] VITALS: BMI 27.3
[~2020-03-10 06:59] MED LIST changes: -ACETAMINOPHEN IV (For NPO) 1,000 MG in EMPTY BAG 1 BAG IVPB ONE; -CHLORHEXIDINE GLUCONATE 15 ML CUP MUCOUS MEM ONE; -DEXAMETHASONE SOD PHOSPHATE 10 MG/ML 1 ML VIAL IV ONE; -HEPARIN SODIUM,PORCINE 5,000 UNIT/ML 1 ML VIAL SQ ONE; -HYDROmorphone 0.5 MG/0.5 ML SYRINGE IVP PRN; +LACTATED RINGERS 1,000 ML IV SCH; +LIDOCAINE 1% (10MG/ML) FOR IV START INTRADERMA PRN; -ONDANSETRON 4 MG/2 ML VIAL IVP ONE; -PANTOPRAZOLE 40 MG/10 ML VIAL IV STA; -SCOPOLAMINE 1.5MG/72HR PATCH TRANSDERM STA; -ceFAZolin IN SWFI 2 GM/20 ML SYRINGE IVP ONE
[2020-03-10 07:27] VITALS: TEMP 97.7
--- NOTE | 2020-03-10 07:40 | P.GSHP ---
History of Present Illness H&P Date: 03/10/20 CHIEF COMPLAINT: Colon screen HISTORY OF PRESENT ILLNESS: The patient is a 70-year-old female who presents for colon screen. Lower endoscopy was offered for further evaluation and management. PAST MEDICAL HISTORY: Please see list. PAST SURGICAL HISTORY: Please see list. MEDICATIONS: Please see list. ALLERGIES: Please see list. SOCIAL HISTORY: No illicit drug use FAMILY HISTORY: No reports of Crohn disease or ulcerative colitis. REVIEW OF ORGAN SYSTEMS: CONSTITUTIONAL: No reports of fevers or chills. PHYSICAL EXAM: VITAL SIGNS: Stable GENERAL: Well-developed pleasant in no acute distress. HEENT: No scleral icterus. Extraocular movements grossly intact. Moist buccal mucosa. NECK: Supple without lymphadenopathy. CHEST: Unlabored respirations. Equal bilateral excursions. CARDIOVASCULAR: Regular rate and rhythm. Distal 2+ pulses. ABDOMEN: Soft, nontender, nondistended. MUSCULOSKELETAL: No clubbing, cyanosis, or edema. ASSESSMENT: 1. Colon screen. PLAN: 1. Recommend proceeding with a lower endoscopy Past Medical History Past Medical History: GERD/Reflux, Hearing Disorder / Deafness, Hyperlipidemia, Osteoarthritis (OA) Additional Past Medical History / Comment(s): hx of HIATAL HERNIA. hx of colon polyps History of Any Multi-Drug Resistant Organisms: None Reported Past Surgical History: Cholecystectomy, Orthopedic Surgery, Tonsillectomy Additional Past Surgical History / Comment(s): hiatal hernia repair, PILONIDAL CYSTECTOMY,RT TRIGGER THUMB REPAIR, COLONOSCOPY/EGD Past Anesthesia/Blood Transfusion Reactions: Postoperative Nausea & Vomiting (PONV) Smoking Status: Former smoker - Past Family History Father Family Medical History: Cancer Additional Family Medical History / Comment(s): SKIN Medications and Allergies Home Medications Medication Instructions Recorded Confirmed Type Calcium Carbonate [Calcium] 600 mg PO DAILY 03/05/20 03/10/20 History Cholecalciferol [Vitamin D3 (25 1,000 unit PO DAILY 03/05/20 03/10/20 History Mcg = 1000 Iu)] Cyanocobalamin (Vitamin B-12) 2,500 mcg PO DAILY 03/05/20 03/10/20 History [Vitamin B-12] Multivit-Min/Iron/Folic/Lutein 1 each PO DAILY 03/05/20 03/10/20 History [Centrum Silver Women Tablet] Niacin 1 tab PO DAILY 03/05/20 03/10/20 History Rosuvastatin [Crestor] 10 mg PO HS 03/05/20 03/10/20 History Sertraline [Zoloft] 100 mg PO QAM 03/05/20 03/10/20 History Allergies Allergy/AdvReac Type Severity Reaction Status Date / Time celecoxib [From Celebrex] Allergy dizziness Verified 03/10/20 07:25 Penicillins Allergy Unknown Verified 03/10/20 07:25 Childhood Sulfa (Sulfonamide Allergy Rash/Hives Verified 03/10/20 07:25 Antibiotics) tramadol Allergy dizziness Verified 03/10/20 07:25 nutmeg Allergy Nausea & Uncoded 03/10/20 07:25 Vomiting & Diarrhea Surgical - Exam Vital Signs Temp Pulse Resp BP Pulse Ox 97.7 F 56 L 15 134/78 100 03/10/20 07:26 03/10/20 07:26 03/10/20 07:26 03/10/20 07:26 03/10/20 07:26
[2020-03-10] MEDS ORDERED: PROPOFOL 10 MG/ML 20 ML VIAL IV ONE (07:53)
[2020-03-10 08:15] VITALS: RESP 16
--- NOTE | 2020-03-10 08:20 | P.PCN ---
Date of Procedure: 03/10/20 Description of Procedure: PREOPERATIVE DIAGNOSIS: Personal history of colon polyps POSTOPERATIVE DIAGNOSIS: Personal history of colon polyps OPERATION: Colonoscopy to the cecum, ileocecal valve. Colonoscopy with cold forceps biopsy, rectum SURGEON: Dee Dee Bartlett MD. ANESTHESIA: MAC. INDICATIONS: The patient is a 70-year-old female who presents for colonoscopy screening. Last colonoscopy 5 years ago. Benefits and risks were described and informed consent was obtained. DESCRIPTION OF PROCEDURE: The patient had undergone Suprep. She had been brought into the operating room and laid in the left lateral decubitus position. After adequate intravenous sedation, the rectum was examined with 2% lidocaine jelly. No external hemorrhoids were encountered. The rectal tone was within normal limits. No lesions were palpated in the rectal vault. The sigmoid colon was highly redundant. Inflammation is found within the rectum at 10 cm from the anal verge, proctitis. Cold forceps biopsies obtained of the rectum. No evidence of active prolapse occurred during the procedure. An Olympus colonoscope was advanced until the cecum, ileocecal valve were clearly viewed. The prep was excellent. No scattered diverticulosis was encountered. No colonic polyps were found. Retroflexion of the scope demonstrated grade 1 internal hemorrhoids without active bleeding or inflammation. The colon was desufflated. The patient had tolerated the procedure well. Withdrawal time was over 6 minutes. FINDINGS: Aronchick preparation quality scale 1 (1-5) Internal hemorrhoids, grade 1 No external prolapsed hemorrhoids. No arteriovenous malformations. No adenomatous polyps. Inflammation is found within the rectum at 10 cm from the anal verge, proctitis. RECOMMENDATIONS: Lower endoscopy in 5 years, 2024 Plan - Discharge Summary Discharge Rx Participant: No New Discharge Prescriptions: Continue Cholecalciferol [Vitamin D3 (25 Mcg = 1000 Iu)] 1,000 unit PO DAILY Sertraline [Zoloft] 100 mg PO QAM Rosuvastatin [Crestor] 10 mg PO HS Niacin 1 tab PO DAILY Multivit-Min/Iron/Folic/Lutein [Centrum Silver Women Tablet] 1 each PO DAILY Cyanocobalamin (Vitamin B-12) [Vitamin B-12] 2,500 mcg PO DAILY Calcium Carbonate [Calcium] 600 mg PO DAILY Discharge Medication List Calcium Carbonate [Calcium] 600 mg PO DAILY 03/05/20 [History] Cholecalciferol [Vitamin D3 (25 Mcg = 1000 Iu)] 1,000 unit PO DAILY 03/05/20 [History] Cyanocobalamin (Vitamin B-12) [Vitamin B-12] 2,500 mcg PO DAILY 03/05/20 [History] Multivit-Min/Iron/Folic/Lutein [Centrum Silver Women Tablet] 1 each PO DAILY 03/05/20 [History] Niacin 1 tab PO DAILY 03/05/20 [History] Rosuvastatin [Crestor] 10 mg PO HS 03/05/20 [History] Sertraline [Zoloft] 100 mg PO QAM 03/05/20 [History] Follow up Appointment(s)/Referral(s): Dee Dee Bartlett MD [STAFF PHYSICIAN] - 03/16/20 Patient Instructions/Handouts: *Surgery [facility] - (Anesthesia) Endoscopy Discharge Instructions Activity/Diet/Wound Care/Special Instructions: Repeat colonoscopy in 5 years, 2024 Discharge Disposition: HOME SELF-CARE
[2020-03-10 08:30] VITALS: BP 108/72; PULSE 55
== END 2020-03-10 08:58 | disposition home or self-care (01) ==
LOC: ORWHC2ENDO 06:59
PROVIDERS: ATTEND Surgery Plastic and Reconstructive Surgery
DX: Z12.11 Encounter for screening for malignant neoplasm of colon (principal); K62.89 Other specified diseases of anus and rectum; Z86.010 Personal history of colon polyps; Q43.8 Other specified congenital malformations of intestine; K64.0 First degree hemorrhoids; K21.9 Gastro-esophageal reflux disease without esophagitis; H91.90 Unspecified hearing loss, unspecified ear; M19.90 Unspecified osteoarthritis, unspecified site; Z90.49 Acquired absence of other specified parts of digestive tract; Z98.890 Other specified postprocedural states; Z87.891 Personal history of nicotine dependence; E78.5 Hyperlipidemia, unspecified; Z80.8 Family history of malignant neoplasm of other organs or systems; Z79.899 Other long term (current) drug therapy; Z88.6 Allergy status to analgesic agent; Z88.5 Allergy status to narcotic agent; Z88.0 Allergy status to penicillin; Z88.2 Allergy status to sulfonamides; Z91.018 Allergy to other foods
CPT/HCPCS: 88305; 45380; J2704

== ENCOUNTER → 2020-04-19 | Outpatient (CLI) | payer MEDICARE, BC ==
--- NOTE | 2020-04-20 13:31 | MM ---
Reason for exam: screening (asymptomatic). Last mammogram was performed 1 year and 1 month ago. History: Patient is postmenopausal. Physical Findings: A clinical breast exam by your physician is recommended on an annual basis and results should be correlated with mammographic findings. MG 3D Screening Mammo W/Cad Bilateral CC and MLO view(s) were taken. Prior study comparison: March 31, 2019, bilateral MG 3d screening mammo w/cad. March 26, 2018, bilateral MG 3d screening mammo w/cad. There are scattered fibroglandular densities. There are benign appearing round calcifications bilaterally. There is no discrete abnormality. ASSESSMENT: Benign, BI-RAD 2 RECOMMENDATION: Routine screening mammogram of both breasts in 1 year.
== END | disposition home or self-care (01) ==
LOC: RADMAMWWP 10:52
PROVIDERS: ATTEND Obstetrics & Gynecology
DX: Z12.31 Encounter for screening mammogram for malignant neoplasm of breast (principal)
CPT/HCPCS: 77063; 77067

== ENCOUNTER → 2022-01-24 | Outpatient (CLI) | payer MEDICARE, OTHER ==
--- NOTE | 2022-01-25 07:49 | MM ---
Reason for Exam: Screening (asymptomatic). Last mammogram was performed 1 year(s) and 9 month(s) ago. Patient History: Menarche at age 12. First Full-Term at age 24. Postmenopausal. Risk Values: Arianna 5 year model risk: 1.7%. NCI Lifetime model risk: 5.2%. Prior Study Comparison: 03/26/2018 Bilateral Screening Mammogram, [facility]. 03/31/2019 Bilateral Screening Mammogram, [facility]. 04/19/2020 Bilateral Screening Mammogram, [facility]. Tissue Density: The breast tissue is heterogeneously dense. This may lower the sensitivity of mammography. Findings: Analyzed By CAD. There is no suspicious group of microcalcifications or new suspicious mass in either breast. Overall Assessment: Negative, BI-RAD 1 Management: Screening Mammogram of both breasts in 1 year. A clinical breast exam by your physician is recommended on an annual basis and results should be correlated with mammographic findings. Electronically signed and approved by: Hernandez Pino M.D. Radiologis
--- NOTE | 2022-01-25 15:21 | BD ---
EXAMINATION TYPE: Axial Bone Density DATE OF EXAM: 01/24/2022 COMPARISON: Prior DEXA bone scan report 2017 CLINICAL HISTORY: 71 years year old Female. ICD-10 CODE: N95.1 MENOPAUSE CLIMACT STATE Height: 5'2 1/2 Weight: 146 FRAX RISK QUESTIONS: Alcohol (3 or more units per day): y History of Fracture in Adulthood: y Secondary Osteoporosis: RISK FACTORS HISTORY OF: History of Wrist Fracture: left When: 2019 Family History of Osteoporosis: y Postmenopausal woman: y MEDICATIONS: Additional Medications: cholesterol,zoloft Additional History: EXAM MEASUREMENTS: Bone mineral densitometry was performed using the [employer] System. Bone mineral density as measured about the Lumbar spine is: ----- L1-L4(G/cm2): 1.099 T Score Values are as follows: ----- L1: -0.3 ----- L2: -0.3 ----- L3: -1.1 ----- L4: 0.0 ----- L1-L4:-0.4 Bone mineral density about the R hip (g/cm2): 0.829 Bone mineral density about the L hip (g/cm2): 0.830 T Score values are as follows: -----R Neck: -1.5 -----L Neck: -1.5 -----R Total: -1.6 -----L Total: -1.6 FRAX%s: The graph provided illustrates a 19.0% chance for a major osteoporotic fx and a 3.4% chance f or the hips probability for fx in 10 years time. IMPRESSION: Osteopenia (T Score between -2.5 and -1) is now present. There is slightly increased risk of fracture and the patient may be considered for treatment. Re-Screen 2-5 years. NOTE: T-SCORE=SD OF THE YOUNG ADULT MEAN.
== END | disposition home or self-care (01) ==
LOC: RADMAMWWP 14:32
PROVIDERS: ATTEND Obstetrics & Gynecology
DX: Z12.31 Encounter for screening mammogram for malignant neoplasm of breast (principal); M85.89 Other specified disorders of bone density and structure, multiple sites; Z78.0 Asymptomatic menopausal state
CPT/HCPCS: 77063; 77067; 77080

== ENCOUNTER → 2024-02-06 | Outpatient (CLI) | payer MEDICARE, OTHER ==
--- NOTE | 2024-02-07 11:53 | BD ---
EXAMINATION TYPE: Axial Bone Density DATE OF EXAM: 02/06/2024 CLINICAL HISTORY: 73 years old Female. ICD-10 CODE: M85.80 osteopenia Height: 61.8 Weight: 143 FRAX RISK QUESTIONS: Alcohol (3 or more units per day): yes Family History (Parent hip fracture): yes History of Fracture in Adulthood: yes 3. Menopause before 45: no, 54 RISK FACTORS HISTORY OF: History of Wrist Fracture: yes...left,2018 MEDICATIONS: cholesterol meds, zoloft, pain meds, vit d3, multivitamin EXAM MEASUREMENTS: Bone mineral densitometry was performed using the [employer] System. Bone mineral density as measured about the Lumbar spine is: ----- L1-L4(G/cm2): 1.118 T Score Values are as follows: ----- L1: -0.8 ----- L2: -0.7 ----- L3: -0.4 ----- L4: -0.3 ----- L1-L4: -0.5 Z Score Values are as follows: ----- L1: 0.9 ----- L2: 1.0 ----- L3: 1.3 ----- L4: 1.4 ----- L1-L4: 1.2 Bone mineral density has: Decreased -1.6% since study of: 01.24.2022 Bone mineral density about the R hip (g/cm2): 0.790 Bone mineral density about the L hip (g/cm2): 0.820 T Score values are as follows: -----R Neck: -1.5 -----L Neck: -1.6 -----R Total: -1.7 -----L Total: -1.5 Z Score values are as follows: -----R Neck: 0.2 -----L Neck: 0.1 -----R Total: -0.2 -----L Total: 0.1 Bone mineral density has: Decreased -0.2% since study of: 01.24.2022 FRAX%s: The graph provided illustrates a 20.5% chance for a major osteoporotic fx and a 4.4% chance f or the hips probability for fx in 10 years time. IMPRESSION: Osteopenia (T Score between -2.5 and -1). There is slightly increased risk of fracture and the patient may be considered for treatment. Re-Screen 2-5 years. NOTE: T-SCORE=SD OF THE YOUNG ADULT MEAN.
--- NOTE | 2024-02-11 09:20 | MM ---
Reason for Exam: Screening (asymptomatic). Last mammogram was performed 2 year(s) and 0 month(s) ago. Patient History: Menarche at age 12. First Full-Term at age 24. Postmenopausal. Risk Values: Arianna 5 year model risk: 1.7%. NCI Lifetime model risk: 4.7%. Prior Study Comparison: 12/17/2015 Bilateral Screening Mammogram, [facility]. 03/23/2017 Bilateral Screening Mammogram, [facility]. 03/26/2018 Bilateral Screening Mammogram, [facility]. 03/31/2019 Bilateral Screening Mammogram, [facility]. 04/19/2020 Bilateral Screening Mammogram, [facility]. 01/24/2022 Bilateral MG 3D screening mammo w/cad, [facility]. Tissue Density: The breasts are heterogeneously dense, which may obscure small masses. Findings: Analyzed By CAD. There is no suspicious group of microcalcifications or new suspicious mass in either breast. Overall Assessment: Benign, BI-RAD 2 Management: Screening Mammogram of both breasts in 1 year. . Patient should continue monthly self-breast exams. A clinical breast exam by your physician is recommended on an annual basis. This exam should not preclude additional follow-up of suspicious palpable abnormalities. Note on Arianna scores and lifetime risk: 1. A Arianna score greater than 3% is considered moderate risk. If this is the case, consider specialist referral to assess eligibility for a risk reducing agent. 2. If overall lifetime risk for the development of breast cancer is 20% or higher, the patient may qualify for future screening with alternating mammogram and breast MRI. Electronically signed and approved by: Hernandez Pino M.D. Radiologis
== END | disposition home or self-care (01) ==
LOC: RADMAMWWP 12:15
PROVIDERS: ATTEND Family Medicine
DX: Z12.31 Encounter for screening mammogram for malignant neoplasm of breast (principal); R92.333 Mammographic heterogeneous density, bilateral breasts; M85.89 Other specified disorders of bone density and structure, multiple sites; Z78.0 Asymptomatic menopausal state
CPT/HCPCS: 77063; 77067; 77080